=== PATIENT | female | born 1995 | race Caucasian/White ===

== ENCOUNTER 2017-02-12 21:52 | Emergency (ER) | payer OTHER ==
[~2017-02-12 21:52] MED LIST: COL100 PO; LOV40I; NORCO1 TA2 PO
[2017-02-12 23:27] VITALS: BP 143/98
== END 2017-02-12 23:27 | disposition home or self-care (01) ==
LOC: ED 21:52
DX: M54.5 Low back pain (principal); Z86.718 Personal history of other venous thrombosis and embolism; Z86.711 Personal history of pulmonary embolism

== ENCOUNTER 2017-07-05 12:47 | Emergency (ER) | payer OTHER ==
[2017-07-05 15:51] LABS: BASOPHIL % 0.4 % (0-2); PLATELET COUNT 228 x10^3mcL (130-400)
[2017-07-05 15:56] LABS: UA SPECIFIC GRAVITY >=1.030 (1.005-1.035); microscopic required? YES; urine erythrocyte 1+ (NEGATIVE)
[2017-07-05 16:06] LABS: CALCIUM 8.4 mg/dL (8.5-10.1); CHLORIDE SERUM 104 mmol/L (98-107); CREATININE SERUM 0.7 mg/dL (0.6-1.0); GFR1 > 60 mL/min; GLUCOSE SERUM 83 mg/dL (74-106); POTASSIUM SERUM 3.7 mmol/L (3.5-5.1); SODIUM SERUM 139 mmol/L (136-145)
[2017-07-05 16:11] LABS: ALBUMIN 3.8 g/dL (3.4-5.0); ALKALINE PHOSPHATASE 97 U/L (46-116); ALT/SGPT 18 U/L (14-59); AST/SGOT 14 U/L (15-37); BILIRUBIN TOTAL 0.5 mg/dL (0.20-1.00); CHOLESTEROL 168 mg/dL (<200); HDL CHOLESTEROL 44 mg/dL (40-60); TOTAL PROTEIN, SERUM 8.2 g/dL (6.4-8.2)
[2017-07-05 17:34] VITALS: BP 118/75
== END 2017-07-05 17:35 | disposition home or self-care (01) ==
LOC: ED 12:47
PROVIDERS: Emergency Medicine
DX: E86.0 Dehydration (principal); Z86.718 Personal history of other venous thrombosis and embolism; Z86.711 Personal history of pulmonary embolism
CPT/HCPCS: 83880; 87804; J7030; Q0092

== ENCOUNTER 2018-02-23 15:24 | Emergency (ER) | payer OTHER ==
[~2018-02-23] VITALS: Ht 170.2 cm; Wt 79.4 kg
[2018-02-23 15:40] VITALS: Ht 170.2 cm; Wt 79.4 kg
[2018-02-23 20:34] VITALS: BP 127/99
== END 2018-02-23 20:34 | disposition home or self-care (01) ==
LOC: ED 15:24
DX: K59.00 Constipation, unspecified (principal)

== ENCOUNTER 2018-03-10 15:15 | Emergency (ER) | payer OTHER ==
[~2018-03-10] VITALS: Ht 170.2 cm; Wt 81.2 kg
[2018-03-10 15:37] VITALS: Ht 170.2 cm; Wt 81.2 kg
[2018-03-10 16:47] LABS: BASOPHIL % 0.4 % (0-2); PLATELET COUNT 198 x10^3mcL (130-400)
[2018-03-10 16:49] LABS: RED CELL DISTRIBUTION WIDTH 17.6 % (11.5-14.5)
[2018-03-10 16:51] LABS: CALCIUM 8.4 mg/dL (8.5-10.1); CARBON DIOXIDE 28.6 mmol/L (21-32); CHLORIDE SERUM 102 mmol/L (98-107); CREATININE SERUM 0.6 mg/dL (0.6-1.0); GFR1 > 60 mL/min; GLUCOSE SERUM 79 mg/dL (74-106); POTASSIUM SERUM 3.9 mmol/L (3.5-5.1); SODIUM SERUM 138 mmol/L (136-145)
[2018-03-10 16:55] LABS: ALBUMIN 3.1 g/dL (3.4-5.0); ALKALINE PHOSPHATASE 68 U/L (46-116); ALT/SGPT 22 U/L (14-59); AST/SGOT 16 U/L (15-37); BILIRUBIN TOTAL 0.7 mg/dL (0.20-1.00); TOTAL PROTEIN, SERUM 6.8 g/dL (6.4-8.2)
[2018-03-10 19:33] VITALS: BP 124/61
== END 2018-03-10 19:33 | disposition home or self-care (01) ==
LOC: ED 15:15
PROVIDERS: Emergency Medicine
DX: R07.89 Other chest pain (principal); R42 Dizziness and giddiness; R11.0 Nausea
CPT/HCPCS: 83880; 85378; J7030; Q0092; Q9967

== ENCOUNTER 2018-10-27 16:55 | Emergency (ER) | payer OTHER ==
[~2018-10-27] VITALS: Ht 170.2 cm; Wt 82.6 kg
[2018-10-27 17:00] VITALS: Ht 170.2 cm; Wt 82.6 kg
[2018-10-27 19:54] VITALS: BP 113/70
== END 2018-10-27 19:54 | disposition home or self-care (01) ==
LOC: ED 16:55
DX: B34.9 Viral infection, unspecified (principal); R07.89 Other chest pain
CPT/HCPCS: 87804; Q0092

== ENCOUNTER 2018-10-30 12:40 | Inpatient (IN) | payer OTHER ==
[~2018-10-30] VITALS: Ht 170.2 cm; Wt 80.9 kg
[2018-10-30 12:43] VITALS: Ht 170.2 cm; Wt 80.9 kg
--- NOTE | 2018-10-30 13:16 | NUR ---
PT TO ED FOR EVAL OF SOB, COUGH, VOMITING, BODY ACHES AND FEVER. PT STATES THESE SYMPTOMS STARTED APPROX 2 DAYS AGO. SHE WAS SEEN IN ED AND DISCHARGED WITH RX. PT HAS HAD NO RELIEF OF SYMPTOMS AND HAD SYCOPE THIS AM. PT AWAKE AND ALERT. BREATHING EVEN UNLABORED. NO DISTRESS. PT PLACED ON CM. MSE COMPELTED BY DR. ELIAS.
[2018-10-30 13:57] LABS: PLATELET COUNT 140 x10^3mcL (130-400)
[2018-10-30 14:02] LABS: CALCIUM 8.8 mg/dL (8.5-10.1); CARBON DIOXIDE 22.9 mmol/L (21-32); CHLORIDE SERUM 97 mmol/L (98-107); CREATININE SERUM 2.4 mg/dL (0.6-1.0); GFR1 26 mL/min; GLUCOSE SERUM 201 mg/dL (74-106); POTASSIUM SERUM 3.2 mmol/L (3.5-5.1); SODIUM SERUM 134 mmol/L (136-145)
[2018-10-30 14:09] LABS: RED CELL DISTRIBUTION WIDTH 16.6 % (11.5-14.5)
--- NOTE | 2018-10-30 14:10 | NUR ---
REPEAT TEMP WAS 99.0 NO NEED TO ADMINISTER TYLENOL
[2018-10-30 14:14] LABS: UA SPECIFIC GRAVITY >=1.030 (1.005-1.035); microscopic required? YES; urine erythrocyte 2+ (NEGATIVE)
[2018-10-30 14:15] LABS: ALKALINE PHOSPHATASE 79 U/L (46-116); ALT/SGPT 18 U/L (14-59); AST/SGOT 15 U/L (15-37); BILIRUBIN TOTAL 0.8 mg/dL (0.20-1.00); TOTAL PROTEIN, SERUM 8.1 g/dL (6.4-8.2)
[2018-10-30 14:16] LABS: ALBUMIN 3.2 g/dL (3.4-5.0)
[2018-10-30 15:07] LABS: BAND NEUTROPHIL 6 % (0-10); METAMYELOCTE 2 % (0-2); MONOCYTE 2 % (0-7); SEGMENTED NEUTROPHILS 88 % (37-75)
[2018-10-30 15:09] LABS: PLATELET MORPHOLOGY FEW LARGE PLATELETS; rbc morphology (normal/abnorm) ABNORMAL (NORMAL)
--- NOTE | 2018-10-30 15:10 | NUR ---
NS BOLUS STILL INFUSING AT THIS TIME. PT SLEEPING, AROUSABLE.
--- NOTE | 2018-10-30 15:11 | NUR ---
ANTIBIOTIC GIVEN PER ORDER. NO REACTIONS. WILL CONTINUE TO MONITOR.
[2018-10-30] MEDS ORDERED: NORCO1 TA2 PO (15:19)
--- NOTE | 2018-10-30 16:11 | NUR ---
IV 2000 NS BOLUS INFUSED BP 104/61, MAP 79. NS @ 200 CC/HR INFUSING. PT AWAKE, ALERT, NO SIGNS OF DISTRESS NOTED.
--- NOTE | 2018-10-30 17:11 | NUR ---
PER DR. ELIAS PT OK TO HAVE REGULAR DIET.
--- NOTE | 2018-10-30 18:10 | NUR ---
2400CC FLUID BOLUS FINISH PER PROTOCAL. PT VITALS STABLE 104/81 PT IS ALERT AND ABLE TO COMMUNICATE NEEDS.
--- NOTE | 2018-10-30 18:33 | NUR ---
FLUIDS RUNNING AT 200CC/HR. REPORT GIVEN TO WILLIE YOON TO ASSUME CARE OF PT. PT IS ALERT AND ORIENTED AND ABLE TO COMMUNCIATE NEEDS.
--- NOTE | 2018-10-30 18:45 | NUR ---
[facility] ACCOMPANIED BY RN AND TRANSPORTER. PT A/A/O X 4, CALM, COOPERATIVE. ABLE TO AMBULATE FROM GUERNEY TO BED WITHOUT GAIT OR BALANCE IMPAIRMENT. ON TELE # 14, ST, HR 115, DENIES CHEST PAIN OR DISCOMFORT AT THIS TIME. NO RESPIRATORY DISTRESS NOTED. ABD SOFT, FLAT, NON-TENDER, HYPERACTIVE BOWEL SOUNDS X 4 QUADS, LAST BM 10/25/18, DIARRHEA. VOIDS FREELY, NO DYSURIA. IV SITE RAC 22G, CDI. ORIENTED PT TO ROOM, BED CONTROLS, CALL LIGHT SYSTEM. SIDE RAILS UP X 2, BED IN LOW POSITION. WILL ENDORSE TO CAR WARREN.
--- NOTE | 2018-10-30 18:50 | NUR ---
RECEIVED PT FROM ED BY ACACIA. PT AMBULATE WITH STEADY GAIT. PT COMPLAIN OF NAUSEA, WILL MEDICATE PER ORDER. PT STATED CP GOT RESOLVED MOST BUT LQ ABD PAIN AND FLANK PAIN STILL THERE. RESOURCE AT BED SIDE PROCESS ADMISSION PROCEDURE. WILL ENDORSE PT'S CARE TO RECEIVING NURSE.
[2018-10-30 18:57] LABS: AMPHETAMINE QUAL UR NONE DETECTED (See below)
[2018-10-30 19:05] VITALS: BP 114/62
--- NOTE | 2018-10-30 19:40 | NUR ---
SEEN PATIENT IN BED AWAKE, ALERT AND ORIENTED, DENIES ABDOMINAL PAIN AT THIS TIME. ABDOMEN ROUND SOFTA ND NONTENDER WITH ACTIVE BS. WITH ADMISSION ORDERS AND TO CARRY OUT. IV TO LAC INTACT AND INFUSING WELL. WILL CONTINUE TO MONITOR. FAMILY MEMBERS AT BEDSIDE.
--- NOTE | 2018-10-30 20:32 | NUR ---
C/O NAUSEA AND VOMITTED X2 IN SMALL AMOUNT, ZOFRAN 4MG IVP GIVEN PRESCRIBED. WILL CONTINUE TO MONITOR.
--- NOTE | 2018-10-30 21:24 | NUR ---
PATIENT STILL C/O NAUSEA/VOMITING, ZOFRAN 4MG IV GIVEN PER PATIENT NOT WORKING AND REQUESTING OTHER MEDICATION. DR STEWART MADE AWARE WITH TELEPHONE ORDERS TO GIVE PHENERGAN 12.5MG IVP Q 6HRS PRN. TO CARRY OUT ORDERS.
--- NOTE | 2018-10-30 22:01 | NUR ---
C/O NAUSEA AND VOMITING. PHENERGAN 12.5MG IVP GIVEN PRESCRIBED. WILL CONTINUE TO MONITOR.
[2018-10-30 22:39] VITALS: BP 95/63
--- NOTE | 2018-10-31 | NUR ---
SLEEPING AT HIS TIME AFTER PHENERGAN 12.5 MGIVP WAS GIVEN. WILL CONTINUE TO MONITOR.
--- NOTE | 2018-10-31 03:11 | NUR ---
AWAKE THIS TIME C/O ABDOMINAL PAIN, MEDCIATED WITH MORPHINE 2MG IVP PRESCRIBED. WILL CONTINUE TO MONITOR.
--- NOTE | 2018-10-31 03:39 | NUR ---
PATIENT THROWING UP AGAIN THIS TIME, PHENERGAN 12.5 MG IV GIVEN PRESCRIBED. WILL CONTINUE TO MONITOR.
--- NOTE | 2018-10-31 05:23 | NUR ---
CHECKED AT INTERVALS FOR NEEDS AND SAFETY. MEDICATED X2 WITH PHENERGAN 12.5 MG IV X2 THE ENTIRE SHIFT. HAD BM X1 LOOSE IN SMALL AMOUNT. WILL ENDORSE CONTINOUS CARE TO AM SHIFT.
[2018-10-31 05:56] VITALS: BP 105/52
--- NOTE | 2018-10-31 07:26 | NUR ---
PT SEEN REST COMFORTABLLY ON BED. NO COMPLAIN OF PAIN AND NAUSEA AT THIS TIME . PT BREATHING ON RA, EVEN, UNLABORED. IV SITE PATENT, INTACT. IVF INFUSING WELL. WILL CONTINUE TO MONITOR.
[2018-10-31 07:41] LABS: CARBON DIOXIDE 22.8 mmol/L (21-32); CREATININE SERUM 2.3 mg/dL (0.6-1.0); MAGNESIUM 1.9 mg/dL (1.8-2.4); PHOSPHOROUS 3.5 mg/dL (2.5-4.9); POTASSIUM SERUM 3.9 mmol/L (3.5-5.1)
[2018-10-31 07:46] LABS: PLATELET COUNT 136 x10^3mcL (130-400)
[2018-10-31 07:53] LABS: RED CELL DISTRIBUTION WIDTH 17.1 % (11.5-14.5)
[2018-10-31 07:55] LABS: FREE T4 1.32 ng/dL (0.76-1.46); T4(THYROXINE) 8.2 ug/dL (4.7-13.3)
[2018-10-31 07:59] LABS: T3 TOTAL 0.83 ng/mL
[2018-10-31 08:33] VITALS: BP 104/59
--- NOTE | 2018-10-31 09:30 | NUR ---
GOT TELECOM COORDINATOR REPORT PT RUNNING FEVER, TYLENOL GIVEN PER PRN ORDER. WILL CONTINUE TO MONITOR.
--- NOTE | 2018-10-31 09:53 | NUR ---
PT'S INSURANCE COMPANY [facility] INSTRUMENT TECHNICIAN HELPER [place] CALLED FOR PT'S CONDITION. BECAUSE THERE IS NO INSTRUMENT TECHNICIAN HELPER IN OFFICE TODAY, CONFIRMED WITH CALENDER ROLL OPERATOR THAT IS OK TO GIVE PT'S GENERAL CONDITION UPDATE.
[2018-10-31 11:52] LABS: BAND NEUTROPHIL 4 % (0-10); BASOPHIL 0 % (0-2); MONOCYTE 2 % (0-7); SEGMENTED NEUTROPHILS 90 % (37-75)
[2018-10-31 11:54] LABS: PLATELET MORPHOLOGY PLATELETS DECREASED; rbc morphology (normal/abnorm) ABNORMAL (NORMAL)
[2018-10-31 12:44] VITALS: BP 95/58
--- NOTE | 2018-10-31 15:40 | NUR ---
PT COMPLAINED OF NAUSEA, ZOFRAN GIVEN, BUT DOESN'T WORK WELL. PT NAUSEA AND VOMITING. PHENERGAN GIVEN PER PRN ORDER.
[2018-10-31 17:56] VITALS: BP 97/58
--- NOTE | 2018-10-31 17:58 | NUR ---
PT IS TAKEN FOR VQ SCAN. MADE ASSISTANT PROFESSOR OF THEATER AWARE.
--- NOTE | 2018-10-31 18:53 | NUR ---
PT BACK FROM VQ SCAN. PT'S TEMP ELEVATED 100.7. TYLENOL GIVEN PER PRN ORDER.
--- NOTE | 2018-10-31 19:38 | NUR ---
ENDORSE PT CARE TO COMING NURSE. MADE COMING NURSE AWARE TYLENOL GIVEN TO MANAGE ELEVATED TEMP, NEED TO BE RECHECK.
--- NOTE | 2018-10-31 19:40 | NUR ---
RECEIVED REPORT FROM DAY SHIFT RN. PT RESTING IN BED. NO SOB ON ROOM AIR. NO C/O N/V/ABD PAIN AT THIS TIME. DENIES CHEST PAIN. IV TO LAC, NS INFUSING. SAFETY MEASURES IN PLACE. BED IN LOWEST POSITION. SIDE RAILS UP X2. INSTRUCTED PT TO USE THE CALL LIGHT FOR ASSISTANCE. CALL LIGHT WITHIN REACH.
[2018-10-31 21:04] VITALS: BP 100/57
--- NOTE | 2018-10-31 21:15 | NUR ---
COOLING MEASURES PROVIDED FOR TEMP 100.0
--- NOTE | 2018-10-31 21:48 | NUR ---
PHENERGAN GIVEN FOR NAUSEA.
[2018-11-01] VITALS (7 sets, daily range): BP systolic 88–127; BP diastolic 52–81
--- NOTE | 2018-11-01 05:07 | NUR ---
TYLENOL GIVEN FOR FEVER AND PHENERGAN FOR N/V.
[2018-11-01 07:11] LABS: PLATELET COUNT 131 x10^3mcL (130-400)
[2018-11-01 07:17] LABS: ALBUMIN 1.9 g/dL (3.4-5.0); BILIRUBIN TOTAL 0.7 mg/dL (0.20-1.00); CALCIUM 7.7 mg/dL (8.5-10.1); CARBON DIOXIDE 22.4 mmol/L (21-32); CREATININE SERUM 1.9 mg/dL (0.6-1.0); POTASSIUM SERUM 3.8 mmol/L (3.5-5.1); TOTAL PROTEIN, SERUM 5.9 g/dL (6.4-8.2)
[2018-11-01 07:28] LABS: RED CELL DISTRIBUTION WIDTH 17.1 % (11.5-14.5)
--- NOTE | 2018-11-01 07:30 | NUR ---
PT SLEPT AT INTERVALS THROUGHOUT SHIFT. NO SOB ON ROOM AIR. ON AND OFF N/V AND FEVER, MEDICATED PER ORDER. SAFETY MEASURES MAINTAINED. ALL NEEDS ATTENDED TO. CALL LIGHT WITHIN REACH. ENDORSED CONTINUITY OF CARE TO DAY SHIFT RN.
--- NOTE | 2018-11-01 08:30 | NUR ---
ALERT AND ORIENTED. BREATHING FREELY ON RA. N/V REFUSED ZOFRAN SHE SAYS IT MAKES HER FEEL WORSE. ADMIN MORPHINE 2 MG IV FOR BACK PAIN 07/07 [place]. NS INFUSING 100 CC HOUR. INDEPENDENT W ADL'S. GAVE SODA AND SODA CRACKERS TO HELP SETTLE STOMACH. TELE # 14 SR-ST. POOR APPETITE. REFUSED BREAKFAST. GAVE JELLO. CALL LIGHT WITHIN REACH.
[2018-11-01 09:36] LABS: BAND NEUTROPHIL 14 % (0-10); BASOPHIL 0 % (0-2); MONOCYTE 9 % (0-7); SEGMENTED NEUTROPHILS 60 % (37-75)
[2018-11-01 09:37] LABS: PLATELET MORPHOLOGY LARGE PLATELET SEEN; rbc morphology (normal/abnorm) ABNORMAL (NORMAL); tear drop cell (dacryocyte) 1+
--- NOTE | 2018-11-01 13:01 | NUR ---
Initial Nutrition Assessment Dx: Sepsis, Pyelonephritis PMHx: PE, DVT, acid reflux PSHx: Breast augmentation, tummy tuck Labs: (11/01) Na 138, K 3.8, BG 112H, BUN 30H, Cr 1.9H (trending down), Trop -, WBC 9.9, H/H 8.4L/25L Meds: Morphine, [place], Phenegran, NSIV, Tylenol, Zofran, Rocephin, Heparin Diet: Regular PO Intake: (2/) B: 10% L: 75% Ht: 67" (170cm) Wt: 178# (80.9 kg) BMI: 27.9 (Overweight) IBW: 135# %IBW: 132% AJBW: 146# (66.3 kg) UBW: 175-180# Age: 23 y/o female Food Allergies: NKFA Skin: Intact Ellis: 22 Edema: None GI: Last BM x 1, loose stool (2/3) Per H&P, pt. admitted with left side CP x 3 days associated with SOB, fever, productive coughing with sputum, and lack of appetite as well and N/V x 5 days. Pt. continues to not feel well with intermittent N/V and continues to receive anti-emetics on the clock. Poor appetite and PO intake noted at this time. Will add ONS for poor appetite and need for supplementation. Refused breakfast per RN notes today. T: N/V/D and poor PO intake >3 days Problem with: No c/o N/V/D/C Problems with: Chewing: N Swallowing: N Current appetite: Poor to fair Recent wt change: None %wt change: N/A Vitamin/Supplement use: None Special diet at home: Regular Physical activity: Walking on a regular basis Education: No diet education provided. Encouraged pt. to increase fluid intake as tolerated. Estimated Nutritional Needs Based on adjusted body weight 66.3 kg: Energy: 9229-6941 kcal/d (25-27 kcal/kg- adult maintenance) Protein: 66-79 g/d (1.0-1.2 g/kg)-maintenance and preservation of lean body mass Fluid: 4810-5579 ml/d (1 ml/kcal-fluid balance) or per doctor Nutrition Diagnosis 1. Inadequate PO intake r/t reported poor appetite AEB documented PO intake meeting <75% estimated calorie and protein needs. 2. Altered GI function r/t multiple medication regimen and potential side effects AEB pt. with continued c/o abdominal pain and intermittent N/V/D. Intervention/RD recommendations 1. Continue regular diet as ordered and provide preferences as able. Add Ensure Enlive BID for poor PO intake to provide an additional 700 calories and 40 g protein. Monitor/Evaluate Goal: PO intake at least 75% of estimated needs Monitor: PO intake, Labs, GI function, diet tolerance F/U in 2-3 days as high risk (11/03-11/04)
--- NOTE | 2018-11-01 15:52 | NUR ---
MADE ROUNDS TO SEE PT WITH DR. LYLE. AFTER SPEAKING TO PT. HE WASMADE AWARE PT IS NOT FEELING WELL, ONGOING ABD PAIN, N/V. AND HAD FEVER 100.6 THIS AM. WILL HOLD DC AND RE EVAL TOMORROW.
[2018-11-01 16:05] LABS: CREATININE UR 215.6 mg/dL
--- NOTE | 2018-11-01 19:44 | NUR ---
DC HELD BY DR. LYLE. PT WAS HAVING FEVER 102. ONGOING PAIN AND N/V. WILL RE EVAL TOMORROW. GENERALIZED WEAKNESS. PT SAYS GRAPE JUICE HELPS HER NAUSEA MORE THAN ANY MEDS. BRP. VSS. NS INFUSING 100 CC HOUR. ROCEPHIN IV ABX. CALL LIGHT WITHIN REACH.
--- NOTE | 2018-11-01 20:26 | NUR ---
PT SEEN RESTING IN BED. ALERT AND ORIENTED X 4. ON TELE #14. TEMP-99.1. LUNG SOUNDS CLEAR. BREATHING IS EVEN AND UNLABORED. RR-17. PT STATES SHE HAS NAUSEA AND HEADACHE. PT IS ABLE TO AMBULATE AND REPOSITION HERSELF INDEPENDENTLY. SKIN IS DRY AND INTACT. IV IS ON LAC, PATENT AND INFUSING WELL.
--- NOTE | 2018-11-01 21:10 | NUR ---
SCHEDULED MEDS GIVEN. PT TOLERATED MED WELL. WILL CONTINUE TO MONITOR.
--- NOTE | 2018-11-01 22:01 | NUR ---
PT COMPLAINING OF 10/10 PAIN. PRN MED MORPHINE IV GIVEN. WILL MONITOR EFFECTIVENESS.
--- NOTE | 2018-11-02 01:15 | NUR ---
ADMINISTERED PRN TYLENOL FOR FEVER 100.6. ADDITIONAL COMFORT MEASURES PROVIDED. WILL CONTINUE TO MONITOR.
--- NOTE | 2018-11-02 01:30 | NUR ---
ADMINISTERED PRN PHENERGAN FOR PT'S NAUSEA. WILL CONTINUE TO MONITOR.
--- NOTE | 2018-11-02 03:15 | NUR ---
PT'S TEMP STILL 100.6 AFTER TYLENOL. COOLING MEASURES CONTINUED. WILL CONTINUE TO MONITOR.
--- NOTE | 2018-11-02 04:53 | NUR ---
PT'S TEMP STILL 100.6. COOLING MEASURES CONTINUED. WILL CONTINUE TO MONITOR.
[2018-11-02 05:28] VITALS: BP 131/70
--- NOTE | 2018-11-02 07:08 | NUR ---
ENDORSED CONTINUITY OF CARE TO ONCOMING NURSEANAMIKA.
--- NOTE | 2018-11-02 07:10 | NUR ---
RECEIVED PT FROM PRAVEENA RN. PT FOUND RESTING IN BED WITH BOTH EYES CLOSED. NO S/S OF ACUTE DISTRESS. AA/OX4. FOLLOWS COMPLEX COMMANDS, RESPONDS TO VERBAL STIMULI. NO COMPLAINT OF PAIN. NO SOB ON ROOM AIR. PT REPORTS INTERMITTENT N/V. DECLINED TO ZOFRAN. NO ABD. PAIN. NO CHILLS. NO FEVER. DRY COUGH NOTED. NO CHEST PAIN. IV WNL TO LAC, NO REDNESS, NO SWELLING, NO INFILTRATION. PATENT. IV FLUIDS FLOWING. BED IN LOW POSITION. CALL LIGHT WITHIN REACH. PT RESTING AGAIN WITH BOTH EYES CLOSED. WILL CONT. TO MONITOR.
[2018-11-02 07:16] LABS: PLATELET COUNT 161 x10^3mcL (130-400)
[2018-11-02 07:18] LABS: RED CELL DISTRIBUTION WIDTH 18.1 % (11.5-14.5)
[2018-11-02 07:20] LABS: BILIRUBIN TOTAL 0.6 mg/dL (0.20-1.00); CALCIUM 7.6 mg/dL (8.5-10.1); CARBON DIOXIDE 23.3 mmol/L (21-32); CREATININE SERUM 1.6 mg/dL (0.6-1.0); POTASSIUM SERUM 3.7 mmol/L (3.5-5.1)
[2018-11-02 07:34] LABS: ALBUMIN 1.8 g/dL (3.4-5.0)
[2018-11-02 09:15] VITALS: BP 123/87
--- NOTE | 2018-11-02 09:17 | NUR ---
TEMP ELEVATED 101.1F ORAL, COOLING MEASURES INITIATED. TYLENOL GIVEN. DENIES CHILLS. COMPLAINT OF CONTINUOUS NAUSEA, IV MEDICATION GIVEN, PT REFUSES ZOFRAN. NO S/S OF ACUTE DISTRESS. AA/OX4. NO YAN. NO DIZZINESS. NO TREMORS. NO SOB ON ROOM AIR. NO CHEST PAIN. CALM/COOPERATIVE. IV WNL, FLUSHES WELL. NO REDNESS, NO SWELLING, NO INFILTRATION. BED IN LOW POSITION. CALL LIGHT WITHIN REACH. WILL CONT. TO MONITOR.
[2018-11-02 09:20] LABS: RHEUMATOID ARTHRITIS FACTOR 18.4 IU/mL (0.0-13.9)
--- NOTE | 2018-11-02 10:36 | NUR ---
DR. LYLE AWARE OF ELEVATED TEMP. TEMP DECREASING, 100.2F ORAL AT THIS TIME. COOLING MEASURES IN PLACE. DENIES CHILLS. NO YAN. NO N/V. NO PAIN. RECEIVED TELEPHONE ORDER FOR REPEAT URINE CULTURE. REPEATED BACK TO PHYSICIAN, VERIFIED, ORDER ENTERED. WILL CARRY OUT ORDER. NO S/S OF ACUTE DISTRESS. PT AA/OX4 LAYING IN BED. BED IN LOW POSITION. CALL LIGHT WITHIN REACH. WILL CONT. TO MONITOR.
[2018-11-02 10:52] LABS: SEGMENTED NEUTROPHILS 60 % (37-75)
[2018-11-02 10:53] LABS: ATYPICAL LYMPH 0 %; BAND NEUTROPHIL 4 % (0-10); BASOPHIL 0 % (0-2); MONOCYTE 10 % (0-7); rbc morphology (normal/abnorm) ABNORMAL (NORMAL)
[2018-11-02 10:54] LABS: PLATELET MORPHOLOGY PLATELETS DECREASED
--- NOTE | 2018-11-02 11:09 | NUR ---
PT TAKEN FOR EXAM. AA/OX4. NO S/S OF ACUTE DISTRESS. NO COMPLAINT OF SOB ON ROOM AIR. IV WNL, SALINE LOCKED. TAKEN BY WHEEL CHAIR. NO N/V AT THIS TIME.
[2018-11-02 12:55] VITALS: BP 115/79
[2018-11-02 14:55] VITALS: BP 143/92
--- NOTE | 2018-11-02 15:06 | NUR ---
LATE ENTRY: PT STATES," I FELT NAUSEOUS AND STARTED THROWING UP AND FELL AND HIT MY HEAD". PT FOUND STANDING IN RESTROOM BY JESSICA BLANCO. ASSISTED PT BACK TO BED, GAIT STEADY. COMPLAINT OF DIZZINESS. INSTRUCTED PT TO USE CALL LIGHT TO CALL FOR ASSISTANCE BEFORE GETTING OUT OF BED OR AMBULATING. PT VERBALIZED UNDERSTANDING. FALL PREC IN PLACE. VS STABLE: 143/92, HR 94, O2 SAT 965% ON ROOM AIR. TEMP 98.9F, RR 18. AWAKE, ALERT, ORIENTED X4. NO S/S OF ACUTE DISTRESS. NO VISIBLE INJURIES/TRAUMA. PERRLA, BRISK, SIZE 3. FACE SYMMETRICAL. SPEECH CLEAR. STRENGTH EQUAL BUE/BLE. DR. TREMAINE LYLE CONTACT, MADE AWARE OF INCIDENT. NO FURTHER RECOMMENDATIONS OR EXAMS AT THIS TIME. WILL CONTINUE TO MONITOR. CLOSELY.
--- NOTE | 2018-11-02 15:43 | NUR ---
PT BEING TRANSFERRED TO [facility]. ROOM 189B. REPORT # [phone]. RECEIVING PHYSICIAN DR. DINH. TO BE TRANSFERRED BY [facility]. REPORT CALLED, GIVEN TO CAR CARVAJAL.
--- NOTE | 2018-11-02 15:50 | NUR ---
RESEARCH LABORATORY MANAGER [place] AWARE OF PREVIOUS MENTIONED INCIDENT.
--- NOTE | 2018-11-02 15:57 | NUR ---
PT BEING TRANSFERRED TO [facility], TAKEN BY JADEN BY NOLBERTO. NO S/S OF ACUTE DISTRESS. NO SOB ON ROOM AIR. NO CHEST PAIN. VS STABLE. CALM/COOPERATIVE. IV WNL TO LAC, NO REDNESS, NO SWELLING, NO INFILTRATION. PATENT. SALINE LOCKED. BELONGINGS WITH PATIENT. PRESCRIPTION SENT WITH [facility] IN TRANSPORT PACKET.
[2018-11-03 11:46] LABS: COMPLEMENT C3 139 mg/dL (82-167)
[2018-11-05 04:13] LABS: CK-BB 0 % (0); CK-MB 0 % (0-3); CK-MM 100 % (97-100); MACRO TYPE 1 0 % (Not Observed); MACRO TYPE 2 0 % (Not Observed)
== END 2018-11-02 16:15 | disposition short-term general hospital (02) | DRG 872 ==
LOC: ED 12:40 → DU 17:40
PROVIDERS: Emergency Medicine; Internal Medicine Nephrology; ADMIT Internal Medicine Pulmonary Disease
DX: A41.9 Sepsis, unspecified organism (principal); N17.9 Acute kidney failure, unspecified; N10 Acute pyelonephritis; K21.9 Gastro-esophageal reflux disease without esophagitis; E86.0 Dehydration; J06.9 Acute upper respiratory infection, unspecified; R55 Syncope and collapse
CPT/HCPCS: 36600; 78598; 84439; 85378; 86431; 87804; A9540; J0696; J1644; J1650; J1885; J1956; J2270; J2405; J2543; J2550; J7030; Q0092

== ENCOUNTER 2020-03-22 13:44 | Emergency (ER) | payer OTHER ==
[~2020-03-22] VITALS: Ht 170.2 cm; Wt 89.8 kg
[2020-03-22 14:45] VITALS: Ht 170.2 cm; Wt 89.8 kg
[2020-03-22 17:09] VITALS: BP 135/100
== END 2020-03-22 17:09 | disposition home or self-care (01) ==
LOC: ED 13:44
DX: B34.9 Viral infection, unspecified (principal); R51 Headache; Z20.828 Contact with and (suspected) exposure to other viral communicable diseases
CPT/HCPCS: J1885; J8597; Q0163; U0003-CS

== ENCOUNTER 2020-08-30 16:23 | Emergency (ER) | payer OTHER ==
[~2020-08-30] VITALS: Ht 170.2 cm; Wt 85.7 kg
[2020-08-30 16:26] VITALS: BP 150/82; Ht 170.2 cm; Wt 85.7 kg
== END 2020-08-30 17:49 | disposition home or self-care (01) ==
LOC: ED 16:23
DX: R50.9 Fever, unspecified (principal); R63.0 Anorexia; Z20.828 Contact with and (suspected) exposure to other viral communicable diseases; Z98.890 Other specified postprocedural states
CPT/HCPCS: U0003

== ENCOUNTER 2020-11-07 19:34 | Emergency (ER) | payer OTHER ==
[~2020-11-07] VITALS: Ht 170.2 cm; Wt 82.6 kg
[2020-11-07 19:46] VITALS: Ht 170.2 cm; Wt 82.6 kg
[2020-11-07 20:37] LABS: BASOPHIL % 0.4 % (0.2-1.3); PLATELET COUNT 227 x10^3mcL (179-408)
[2020-11-07 20:38] LABS: RED CELL DISTRIBUTION WIDTH 15.3 % (12.3-17.7)
[2020-11-07 20:50] LABS: CALCIUM 8.5 mg/dL (8.5-10.1); CARBON DIOXIDE 29.1 mmol/L (21-32); CHLORIDE SERUM 100 mmol/L (98-107); CREATININE SERUM 0.9 mg/dL (0.6-1.0); GFR1 > 60 mL/min; GLUCOSE SERUM 122 mg/dL (74-106); POTASSIUM SERUM 3.6 mmol/L (3.5-5.1); SODIUM SERUM 138 mmol/L (136-145)
[2020-11-07 20:55] LABS: ALKALINE PHOSPHATASE 75 U/L (46-116); ALT/SGPT 29 U/L (14-59); AST/SGOT 18 U/L (15-37); BILIRUBIN TOTAL 0.6 mg/dL (0.20-1.00); TOTAL PROTEIN, SERUM 7.9 g/dL (6.4-8.2)
[2020-11-07] MEDS ORDERED: ASPIRIN FOR CHI81 M1 PO (21:34)
[2020-11-07 21:54] VITALS: BP 114/71
== END 2020-11-07 21:54 | disposition home or self-care (01) ==
LOC: ED 19:34
PROVIDERS: Emergency Medicine
DX: M79.605 Pain in left leg (principal); M79.602 Pain in left arm
CPT/HCPCS: 85378